=== PATIENT | male | born 1940 | race Caucasian/White ===

== ENCOUNTER → 2017-02-20 | Outpatient (CLI) | payer MEDICARE, OTHER ==
[~2017-02-20] MED LIST: ALDACTONE25 MG PO; ALLERGY RELIEF25 M1 PO; ASPIRIN LO-DOSE81 MG PO; DIOVAN160 MG PO; GLUCOTROL5 MG PO; KOMBIGLYZE XR1 EACH PO; LOPRESSOR50 MG PO; NORVASC10 MG PO; RANITIDINE HCL150 M1 PO; TRAZODONE HCL100 MG PO; VITAMIN D1000 UNIT PO; ZOCOR40 MG PO; ZYLOPRIM300 MG PO
== END | disposition disaster alternative care site (69) ==
LOC: GRAD 12:45
DX: N20.0 Calculus of kidney (principal); M47.896 Other spondylosis, lumbar region; Z98.890 Other specified postprocedural states